=== PATIENT | male | born 1995 | race Hispanic/Latino ===

== ENCOUNTER 2021-03-06 17:47 | Emergency (ER) | payer BC, OTHER, SELFPAY ==
[2021-03-06] MEDS ORDERED: Boostrix 0.5 ML (Tdap) VIAL ONE (17:55)
[2021-03-06] MEDS ORDERED: Lidocaine 1% (PF) 30 ML VIAL ONE (17:55)
[2021-03-06] MEDS ORDERED: Bacitracin 1 PK ONE (18:30)
== END 2021-03-06 19:42 | disposition home or self-care (01) ==
LOC: NAV ERS 17:47
DX: S01.81XA Laceration without foreign body of other part of head, initial encounter (principal); S13.9XXA Sprain of joints and ligaments of unspecified parts of neck, initial encounter; W20.8XXA Other cause of strike by thrown, projected or falling object, initial encounter
CPT/HCPCS: 12013; 70450; 72125; 90471; 90715; J2001